=== PATIENT | female | born 1985 | race Caucasian/White ===

== ENCOUNTER 2021-05-15 16:52 | Emergency (ER) | payer BC ==
[~2021-05-15] VITALS: Ht 175.3 cm; Wt 56.7 kg
--- NOTE | 2021-05-15 16:52 | NUR ---
PT SANDEE via gurney to bed 10.
[2021-05-15] MEDS ORDERED: NACL 0.9% 1,000 ML IV ONE (17:05)
[2021-05-15 17:08] VITALS: BP 44/25
[2021-05-15 17:26] LABS: BASOPHILS # (AUTO) 0.1 K/uL (0.00-0.22); BASOPHILS % (AUTO) 0.5 % (0.0-2.0); EOSINOPHILS # (AUTO) 0.1 K/uL (0-0.4); EOSINOPHILS % (AUTO) 1.3 % (0.0-4.0); HEMATOCRIT 38.7 % (36-48); HEMOGLOBIN 12.7 g/dL (12.0-16.0); LYMPHOCYTES % (AUTO) 26.6 % (20.5-51.1); MEAN CORPUSCULAR HEMOGLOBIN 29 pg (27-31); MEAN CORPUSCULAR HGB CONC 33 g/dL (33-37); MEAN CORPUSCULAR VOLUME 89.5 fL (80-94); MONOCYTES # (AUTO) 0.9 K/uL (0.8-1.0); MONOCYTES % (AUTO) 8.1 % (1.7-9.3); NEUTROPHILS # (AUTO) 7.2 K/uL (1.8-7.7); NEUTROPHILS % (AUTO) 63.5 % (42.2-75.2); PLATELET COUNT (AUTO) 231 K/uL (140-450); RED BLOOD CELL COUNT(AUTO) 4.33 MIL/uL (4.20-5.40); RED CELL DISTRIBUTION WIDTH 13.5 % (11.6-13.7); WHITE BLOOD COUNT (AUTO) 11.3 K/uL (4.8-10.8)
--- NOTE | 2021-05-15 17:36 | NUR ---
35 Y/O F BIBA FROM HOME, PATIENT PRESENTS TO ED WITH ABD PAIN 10/10 THAT RADIATES TO PELVIC AREA, SYMPTOMS STARTED TODAY ABOUT AN HOUR AGO. PT STATES SHE THINKS HER CONNECTIVE TISSUE SYNDROME MIGHT BE CAUSING THE PAIN". PT ALSO C/O NAUSEA AND VOMITING; SKIN IS PALE/COOL/DRY; AAOX4; LUNGS CLEAR BL; HR EVEN AND REGULAR; PT DENIES ANY FEVER, CP, SOB, OR COUGH AT THIS TIME; PATIENT STATES PAIN OF 10/10 AT THIS TIME; PATIENT POSITIONED FOR COMFORT; HOB ELEVATED; BEDRAILS UP X2; BED DOWN. ER MD MADE AWARE OF PT STATUS. PMH: Clare Danlos, POSTERAL ORTHOSTATIC SYNDROME ALLERGY: CLINDAMYCIN MEDS EN ROUTE: ZOFRAN 4MG, 15MG KETOROLAC LMP: 28 DAYS
[2021-05-15 17:41] LABS: ALBUMIN 3.6 g/dL (3.4-5.0); CARBON DIOXIDE 23.4 mmol/L (21-32); CREATININE 0.8 mg/dL (0.6-1.3); POTASSIUM 3.4 mmol/L (3.5-5.1); TOTAL BILIRUBIN 0.4 mg/dL (0.0-1.0)
--- NOTE | 2021-05-15 17:42 | NUR ---
PT AMBULATED TO BATHROOM.
[2021-05-15] MEDS ORDERED: fentaNYL citrate 0.05 MG/ML VIAL IVP ONE (17:55)
--- NOTE | 2021-05-15 19:01 | NUR ---
PT HAVING RASH DEVELOP AROUND IV SITE POST CT
[2021-05-15] MEDS ORDERED: diphenhydrAMINE 50 MG/ML VIAL IVP ONE (19:10)
--- NOTE | 2021-05-15 19:23 | NUR ---
received report from Stephy gynecology teacher for continuity of care
--- NOTE | 2021-05-15 19:23 | NUR ---
Pt report given to CORA RN. Transfer of care at this time.
[2021-05-15 19:35] LABS: BILIRUBIN,URINE NEGATIVE (NEGATIVE); BLOOD, URINE 2+ (NEGATIVE); COLOR,URINE YELLOW (YELLOW); LEUKOCYTE ESTERASE ,URINE 1+ (NEGATIVE); NITRITE, URINE NEGATIVE (NEGATIVE); PH,URINE 6.5 (5.0-9.0); UGLUCOSE NEGATIVE (NEGATIVE)
[2021-05-15 19:43] LABS: APPEARANCE,URINE HAZY (CLEAR)
--- NOTE | 2021-05-15 19:44 | NUR ---
patient moved to bed 11
[2021-05-15 19:46] LABS: RBC,URINE 0-5 /HPF (0-5); WBC,URINE 0-5 /HPF (0-5)
--- NOTE | 2021-05-15 19:52 | NUR ---
provided patient with water and tolerated well. ERMD made aware
--- NOTE | 2021-05-15 20:10 | NUR ---
Avi murphy in EDM - 05/15/21 at 2016 by [email or web address] patient experiencing pain 6/10 cramping, churning, and stabbing in the RLQ of abdomen.
--- NOTE | 2021-05-15 20:10 | NUR ---
patient experiencing pain 6/10 cramping, churning, and stabbing in the RLQ of abdomen. ERMD made aware.
--- NOTE | 2021-05-15 20:24 | NUR ---
per ERMD spoke with patient about bowel habits, patient reports going daily but the last couple of days patient has been straining. ERMD made aware
--- NOTE | 2021-05-15 20:40 | NUR ---
patient just started menstrual cycle provided pads and ambulatory to the bathroom
--- NOTE | 2021-05-15 22:16 | NUR ---
ERMD at bedside speaking with patients about results and answering questions
--- NOTE | 2021-05-15 22:31 | NUR ---
IV removed, catheter intact and site benign. Applied folded 4x4 gauze and tape to stop bleeding.
[2021-05-15] MEDS ORDERED: ONDA-24 SL (22:39)
--- NOTE | 2021-05-15 23:05 | NUR ---
Patient discharged with v/s stable. Written and verbal after care instructions given and explained. Patient alert, oriented and verbalized understanding of instructions. Ambulatory with steady gait. All questions addressed prior to discharge. ID band removed. Patient advised to follow up with PMD. Rx of Zofran ODT given. Patient educated on indication of medication including possible reaction and side effects. Opportunity to ask questions provided and answered.
[2021-05-16 00:03] VITALS: BP 112/72
== END 2021-05-15 23:05 | disposition home or self-care (01) ==
LOC: MED 16:52
DX: R10.9 Unspecified abdominal pain (principal); R11.2 Nausea with vomiting, unspecified; Z79.2 Long term (current) use of antibiotics
CPT/HCPCS: 36415; 74177; 80053; 81001; 81025; 83690; 84703; 85025; 87086; 96361; 96374; 99285; J1200; J7030; Q9967; J3010